=== PATIENT | female | born 1950 | race Caucasian/White ===

== ENCOUNTER 2018-11-27 19:58 | Emergency (ER) | payer OTHER ==
[~2018-11-27] VITALS: Ht 172.7 cm; Wt 80.0 kg
[2018-11-27 20:03] VITALS: Ht 172.7 cm; Wt 80.0 kg
[2018-11-27] MEDS ORDERED: SOD CHLORIDE 0.9% 1,000 ML IV STA (20:08)
[2018-11-27] MEDS ORDERED: morphine 4 MG/ML VIAL IV STA (20:08)
[2018-11-27] MEDS ORDERED: ONDANSETRON 4 MG INJ IV STA (20:08)
[2018-11-27] MEDS ORDERED: LEVO50TA7 PO (21:02)
[2018-11-27] MEDS ORDERED: ALBU8.5H8 INH (21:02)
[2018-11-27] MEDS ORDERED: ACETAMINOPHEN 325 MG TAB PO ONE (21:30)
[2018-11-27] MEDS ORDERED: HYDR-3980 PO (22:35)
[2018-11-27] MEDS ORDERED: ONDA4TAB14 PO (22:35)
[2018-11-27] MEDS ORDERED: IBUP800T48 PO (22:35)
--- NOTE | 2018-11-27 22:51 | ERD ---
ER Documentation Chief Complaint Chief Complaint BIBA for AP x 3 hour hx pancreatitis and bladder CA HPI 68-year-old female history of bladder CA undergoing chemotherapy that starts next week. The patient has a known history of pancreatitis. She describes 3 hours of epigastric abdominal discomfort. The pain is occasionally 8 out of 10. No associated nausea vomiting diarrhea or constipation. No chest pressure. ROS All systems reviewed and are negative except as per history of present illness. Medications Home Meds Active Scripts Ondansetron (Ondansetron Odt) 4 Mg Tab.rapdis, 4 MG PO Q6H PRN for NAUSEA AND/OR VOMITING, #20 TAB Prov:MAGALI BROOKS MD 11/27/18 Ibuprofen* (Motrin*) 800 Mg Tab, 800 MG PO Q6H PRN for PAIN AND OR ELEVATED TEMP, #30 TAB Prov:MAGALI BROOKS MD 11/27/18 Hydrocodone/Acetaminophen ([place] 10-325 Tablet) 1 Each Tablet, 1 TAB PO Q6H PRN for PAIN, #5 TAB Prov:MAGALI BROOKS MD 11/27/18 Reported Medications Albuterol Sulfate* (Proair HFA*) 8.5 Gm Hfa.aer.ad, 2 PUFF INH Q4H PRN for WHEEZING AND SOB, #1 INHALER 11/27/18 Levothyroxine Sodium* (Levothyroxine Sodium*) 50 Mcg Tablet, 50 MCG PO BEFORE BREAKFAST, #30 TAB 11/27/18 Allergies Allergies: Coded Allergies: tetracycline (Verified Allergy, Unknown, 11/27/18) PMhx/Soc Hx Cardiac Disorders: Yes (HTN) Hx Miscellaneous Medical Probl: Yes (bladder ) Hx Alcohol Use: No Hx Substance Use: No Hx Tobacco Use: No Smoking Status: Never smoker FmHx Family History: No diabetes Physical Exam Vitals Vital Signs Date Temp Pulse Resp B/P (MAP) Pulse Ox O2 O2 Flow FiO2 Time Delivery Rate 11/27/18 98.6 76 18 166/96 100 Room Air 21:52 (119) 11/27/18 37.1 21:36 11/27/18 75 16 171/88 Room Air 20:57 (115) 11/27/18 98.7 77 16 192/94 98 20:03 (126) Physical Exam General: Well developed, well nourished, no acute distress Head: Normocephalic, atraumatic. Eyes: Pupils equally reactive, EOM intact ENT: Moist mucous membranes Neck: Supple, no lymphadenopathy Respiratory: Lungs clear bilaterally, no distress Cardiovascular: RRR, no murmurs, rubs, or gallops Abdominal: Soft, mild epigastric abdominal tenderness without rebound or guarding : Deferred MSK: No edema, no unilateral swelling, 5/5 strength Neurologic: Alert and oriented, moving all extremities, normal speech, no focal weakness, no cerebellar signs Skin: No rash Psych: Normal mood Result Diagram: 11/27/18204611/27/182046 Results 24 hrs Laboratory Tests Test 11/27/18 20:47 11/27/18 21:30 White Blood Count 6.5 10^3/ul Red Blood Count 4.68 10^6/ul Hemoglobin 12.7 g/dl Hematocrit 40.1 % Mean Corpuscular Volume 85.7 fl Mean Corpuscular Hemoglobin 27.1 pg Mean Corpuscular Hemoglobin Concent 31.7 g/dl Red Cell Distribution Width 12.3 % Platelet Count 185 10^3/UL Mean Platelet Volume 9.6 fl Immature Granulocytes % 0.500 % Neutrophils % 69.1 % Lymphocytes % 20.1 % Monocytes % 8.0 % Eosinophils % 2.0 % Basophils % 0.3 % Nucleated Red Blood Cells % 0.0 /100WBC Immature Granulocytes # 0.030 10^3/ul Neutrophils # 4.5 10^3/ul Lymphocytes # 1.3 10^3/ul Monocytes # 0.5 10^3/ul Eosinophils # 0.1 10^3/ul Basophils # 0.0 10^3/ul Nucleated Red Blood Cells # 0.0 10^3/ul Sodium Level 137 mmol/L Potassium Level 3.4 mmol/L Chloride Level 101 mmol/L Carbon Dioxide Level 28 mmol/L Anion Gap 8 Blood Urea Nitrogen 15 mg/dl Creatinine 0.65 mg/dl Est Glomerular Filtrat Rate mL/min > 60 mL/min Glucose Level 116 mg/dl Calcium Level 10.0 mg/dl Total Bilirubin 0.1 mg/dl Direct Bilirubin 0.00 mg/dl Indirect Bilirubin 0.1 mg/dl Aspartate Amino Transf (AST/SGOT) 29 IU/L Alanine Aminotransferase (ALT/SGPT) 27 IU/L Alkaline Phosphatase 137 IU/L Troponin I < 0.012 ng/ml Total Protein 7.6 g/dl Albumin 4.5 g/dl Globulin 3.10 g/dl Albumin/Globulin Ratio 1.45 Lipase 79 U/L Urine Color COLORLESS Urine Clarity CLEAR Urine pH 8.0 Urine Specific Callahan 1.005 Urine Ketones NEGATIVE mg/dL Urine Nitrite NEGATIVE mg/dL Urine Bilirubin NEGATIVE mg/dL Urine Urobilinogen NEGATIVE mg/dL Urine Leukocyte Esterase NEGATIVE Dimitris/ul Urine Hemoglobin NEGATIVE mg/dL Urine Glucose NEGATIVE mg/dL Urine Total Protein NEGATIVE mg/dl Current Medications Medications Dose Sig/Tracie Start Time Status Last (Trade) Ordered Route PRN Stop Time Admin Dose Reason Admin Sodium 1,000 ml @ Q1H STAT 11/27/18 DC 11/27/18 Chloride 1,000 mls/hr IV 20:08 20:48 11/27/18 21:07 Morphine 4 mg ONCE STAT 11/27/18 DC 11/27/18 Sulfate IV 20:08 20:48 (morphine) 11/27/18 20:09 Ondansetron 4 mg ONCE STAT 11/27/18 DC 11/27/18 HCl (Zofran IV 20:08 20:48 Inj) 11/27/18 20:09 650 mg ONCE ONCE 11/27/18 DC 11/27/18 Acetaminophen PO 21:30 21:36 (Tylenol 11/27/18 21:31 Tab) Procedures/MDM EKG, MONITORS, & DIAGNOSTIC IMAGING: EKG: I reviewed and interpreted a 12-lead EKG. Rhythm: Normal sinus rhythm ST Changes: No contiguous ST segment elevations T waves: No contiguous T wave inversions Impression: No evidence of acute cardiac ischemia CT a/p IMPRESSION: 1. Polypoid mass along the anterior wall of the urinary bladder is concerning for bladder cancer. Recommend further evaluation with a CT IVP and urology consultation. Recommend correlation with urinalysis. Tissue is required for definitive diagnosis. 2. Enlarged lymph node in the left pelvic sidewall is concerning for a ngozi metastasis and 2.3 cm hypodense liver lesion is concerning for a liver metastasis. This can be evaluated at the time of contrast enhanced CT. 3. Moderate colonic stool in keeping with constipation. Mild colonic diverticulosis without diverticulitis. 4. Mild atherosclerosis of the aorta with a small outpouching arising from the infrarenal aorta that may represent a small saccular aneurysm from a chronic penetrating atherosclerotic ulcer. Maximum aorta diameter measures 2 cm. Negative for retroperitoneal hemorrhage. 5. Please note that in the absence of intravenous contrast the study does not evaluate the patency of the vasculature. RPTAT: HCTS LAB INTERPRETATION: I reviewed the laboratory testing and it shows no evidence of acute process MEDICAL DECISION MAKING: Patient presents with abdominal pain in the setting of malignancy. Laboratory testing and diagnostic imaging would be appropriate to rule out metastatic disease process or bowel obstruction or other acute interabdominal process. Low concern for cardiac etiology ER COURSE: * Patient was given IV fluids and pain control medication with dramatic improvement and complete resolution of her symptoms. * Patient CT of the abdomen pelvis is concerning for possible metastatic disease process. Patient follows up at [facility] and at this point her symptoms are controlled and she can be safely discharged. Diagnostic imaging was printed out for her follow-up benefit and return precautions were discussed and understood CONSULTATION: None DISPOSITION PLAN: The patient does not have an identifiable emergent medical condition that warrants inpatient hospitalization at this time. The patient is deemed safe for discharge with outpatient follow-up. We discussed follow up with the patient's primary care doctor within 24 to 48 hours as needed. We also discussed return to the emergency room for worsening symptoms or worsening condition. Outpatient referral: Her primary hematology oncologist Discharge Medications: [place] NARCOTIC MEDICATION: The patient has been prescribed a narcotic medication during this encounter. The patient has been warned about the use of narcotics. The patient should not drive or operate heavy machinery while taking this medication. The patient was also warned about the addictive properties of narcotic medications. Narcan prescription was NOT provided given the following criteria: 1. No more than 5 tablets of [place] 10 mg or 10 tablets of [place] 5 mg were prescribed. 2. Concomitant opiate and benzodiazepine prescriptions were not provided. 3. There is no obvious evidence of prior history of opiate abuse or overdose. Departure Diagnosis: Primary Impression: Abdominal pain Abdominal location: generalized Qualified Codes: R10.84 - Generalized abdominal pain Condition: Stable Patient Instructions: Abdominal Pain Referrals: [facility] YOU HAVE RECEIVED A MEDICAL SCREENING EXAM AND THE RESULTS INDICATE THAT YOU DO NOT HAVE A CONDITION THAT REQUIRES URGENT TREATMENT IN THE EMERGENCY DEPARTMENT. FURTHER EVALUATION AND TREATMENT OF YOUR CONDITION CAN WAIT UNTIL YOU ARE SEEN IN YOUR DOCTORS OFFICE WITHIN THE NEXT 1-2 DAYS. IT IS YOUR RESPONSIBILITY TO MAKE AN APPOINTMENT FOR FOLOW-UP CARE. IF YOU HAVE A PRIMARY DOCTOR --you should call your primary doctor and schedule an appointment IF YOU DO NOT HAVE A PRIMARY DOCTOR YOU CAN CALL OUR PHYSICIAN REFERRAL HOTLINE AT IF YOU CAN NOT AFFORD TO SEE A PHYSICIAN YOU CAN CHOSE FROM THE FOLLOWING [facility] [address] [facility] [address] [facility] [address] [facility] [address] [facility] [address] [facility]. [facility] [address] [facility] YOU HAVE RECEIVED A MEDICAL SCREENING EXAM AND THE RESULTS INDICATE THAT YOU DO NOT HAVE A CONDITION THAT REQUIRES URGENT TREATMENT IN THE EMERGENCY DEPARTMENT. FURTHER EVALUATION AND TREATMENT OF YOUR CONDITION CAN WAIT UNTIL YOU ARE SEEN IN YOUR DOCTORS OFFICE WITHIN THE NEXT 1-2 DAYS. IT IS YOUR RESPONSIBILITY TO MAKE AN APPOINTMENT FOR FOLOW-UP CARE. IF YOU HAVE A PRIMARY DOCTOR --you should call your primary doctor and schedule and appointment IF YOU DO NOT HAVE A PRIMARY DOCTOR YOU CAN CALL OUR PHYSICIAN REFERRAL HOTLINE AT . IF YOU CAN NOT AFFORD TO SEE A PHYSICIAN YOU CAN CHOSE FROM THE FOLLOWING [facility]: [facility] [address] [place] [address] [facility] [address] [place] [address] [facility] [address] [place] [address] Additional Instructions: Call your primary care doctor TOMORROW for an appointment during the next 1 WEEK.Tell the front office secretary that you were referred from this facility.See the doctor sooner or return here if your condition worsens before your appointment time. MAGALI BROOKS MD Nov 27, 2018 22:51
[2018-11-27 23:16] VITALS: BP 152/101; PULSE 74; RESP 18
== END 2018-11-27 23:19 | disposition home or self-care (01) ==
LOC: E/R 19:58
DX: R10.84 Generalized abdominal pain (principal); C67.9 Malignant neoplasm of bladder, unspecified; I10 Essential (primary) hypertension
CPT/HCPCS: 36415; 74176; 80053; 81003; 83690; 84484; 85025; 96374; 96375; 99285; J2270; J2405; J7030